=== PATIENT | female | born 1990 | race Caucasian/White ===

== ENCOUNTER → 2017-01-13 | Outpatient (CLI) | payer BC, OTHER ==
[~2017-01-13] MED LIST: MEDR150I IM; MULT-506 PO; TOPI50TA24 PO
== END | disposition home or self-care (01) ==
LOC: C.LABSPEC 10:22
DX: I80.8 Phlebitis and thrombophlebitis of other sites (principal)

== ENCOUNTER 2021-03-22 16:41 | Inpatient (IN) ==
[2021-03-22] MEDS ORDERED: OXYTOCIN 30 UNITS/500 ML BAG IV PRN ×2 (17:24→20:13)
[2021-03-22] MEDS ORDERED: PENICILLIN G POTASSIUM 6 MU in DEXTROSE 5% 250 ML IV STA (17:36)
[2021-03-22] MEDS: LACTATED RINGER'S 1,000 ML IV PRN ×2 (17:55→21:37)
[2021-03-22 17:58] LABS: Hematocrit (blood only) 36.4 % (37-47); Hemoglobin 12.4 g/dL (12.0-16.0); Mean Corpuscular Hemoglobin 28.4 pg (25-34); Mean Corpuscular Hgb Conc 34.1 g/dL (32-36); Mean Corpuscular Volume 83.5 fL (80-100); Mean Platelet Volume 10.8 fL (7.4-10.4); Platelet Count 170 K/uL (130-400); RDW Coefficient of Variation 13.4 % (11.5-14.5); RDW Standard Deviation 40.6 fL (36.4-46.3); Red Blood Count 4.36 M/uL (4.2-5.4); White Blood Count 8.73 K/uL (4.8-10.8)
[2021-03-22 18:18] LABS: Albumin Level 2.4 gm/dl (3.4-5.0); BUN Creatinine Ratio 7.8 (10-20); Calcium 7.9 mg/dl (8.5-10.1); Creatinine Clr Calc Pharmacy 76.2 ml/min; Est GFR (African American) 77.8 ml/min; Est GFR (Non-African American) 67.1 ml/min; Potassium 3.4 mmol/L (3.5-5.1)
[2021-03-22 18:21] LABS: Albumin Globulin Ratio 0.7 (0.9-2); Bilirubin,Total 0.3 mg/dl (0.2-1); Globulin 3.3 gm/dl (2.5-4.0); Total Protein 5.7 gm/dl (6.4-8.2)
--- NOTE | 2021-03-22 20:20 | History & Physical Report ---
Date of Service March 22, 2021 Assessment & Plan (1) Labor, prolonged latent phase: Plan: 30-year-old G1, P0 at 40 weeks and 3 days of gestation presenting with regular uterine contractions, prolonged latent phase, GBS positive, gestational diabetes, diet controlled, Vital signs stable afebrile, elevated blood pressures with contractions only, no proteinuria, normal labs and no symptoms, heart rate reassuring, Discussed option of expectant management versus augmentation with low-dose Pitocin, She desires to walk around for about 2 hours and then oxytocin augmentation, Penicillin for GBS, Continue to monitor, Epidural as requested by patient. (2) GBS (group B Streptococcus carrier), +RV culture, currently : (3) Gestational diabetes mellitus (GDM): (4) Post-dates : Admission and Anticipated Discharge Date Admission Date: March 22, 2021 History of Present Illness Primary Care Provider: Umang Coles Jr, DO Patient is a 30-year-old G1, P0 at 40 weeks and 3 days of gestation who has been feeling contractions since last night, they got more closer and regular and much more painful this afternoon. She feels them every 3 to 5 minutes and rates the pain 8-9 out of 10. She denies leakage of fluid or vaginal bleeding. She reports good movements. She denies fever, chills, nausea vomiting, headaches, change in her vision, epigastric or right upper quadrant pain, no Covid symptoms. Her has been uncomplicated except, 1/history of seizure disorder, last seizure was 12 years ago. She has been on Topamax which was approved by her neurologist and M. Her altered ultrasound was within normal limits, 2/gestational diabetes, diet-controlled, 3 GBS positive, 3/history of migraines Allergies Allergy/AdvReac Type Severity Reaction Status Date / Time No Known Allergies Allergy Mild Verified 03/30/14 05:56 Home Medications Medication Instructions Recorded Confirmed Type folic acid 1 mg tablet 1 mg PO DAILY 03/22/21 03/22/21 History prenat.vits,jorden,uav-oahh-zjuzg 1 tab PO DAILY 03/22/21 03/22/21 History topiramate 100 mg tablet (Topamax) 100 mg PO BID 03/22/21 03/22/21 History Patient History Medical History (Updated 03/22/21 @ 20:18 by Riley Silva MD) Gestational diabetes mellitus (GDM) Seizure Surgical History History of cholecystectomy [place] teeth extracted Social History Smoking Status: Never smoker Hx Alcohol Use: No Hx Substance Use: No Preferred Language: Grenadian Track Inspector Required: No Beliefs That Will Affect Care: None marital status: Current Living Situation: Spouse Feels Safe at Home: Yes Safety Concerns: Feels Safe At This Time Assistive Devices: None PHILOSOPHY SPECIALIST History Denies any history of STDs including chlamydia, gonorrhea, herpes Physical Exam Constitutional: well developed, well nourished and + acute distress (With contractions) Genitourinary: normal external appearance OB Exam Abdomen: + vertex Ma nual OB Exam: + cervical dilation 2 cm, + cervical effacement 80% and + station -2 OB Exam Monitor Tracing: + external uterine monitor used and + category I Results & Data ([facility]) Vital Signs (Past 12 Hours) Vital Signs Temp Pulse Resp BP 03/22/21 19:26 36.7 C 55 L 20 149/90 H 03/22/21 17:31 70 132/85 03/22/21 16:54 51 L 152/88 H 03/22/21 16:50 36.5 C 16 Laboratory Results Lab Results 03/22/21 03/22/21 03/22/21 Range/Units 17:51 17:51 19:20 WBC 8.73 (4.8-10.8) K/uL RBC 4.36 (4.2-5.4) M/uL Hgb 12.4 (12.0-16.0) g/dL Hct 36.4 L (37-47) % MCV 83.5 (80-100) fL MCH 28.4 (25-34) pg MCHC 34.1 (32-36) g/dL RDW Std Deviation 40.6 (36.4-46.3) fL RDW Coeff of Rock 13.4 (11.5-14.5) % Plt Count 170 (130-400) K/uL MPV 10.8 H (7.4-10.4) fL Sodium 138 (136-145) mmol/L Potassium 3.4 L (3.5-5.1) mmol/L Chloride 109 H (98-107) mmol/L Carbon Dioxide 20 L (21-32) mmol/L Anion Gap 9.0 (3-11) BUN 9 (7-18) mg/dl Creatinine 1.09 (0.6-1.2) mg/dl Est Cr Clr Drug Dosing 76.2 ml/min Est GFR ( Amer) 77.8 ml/min Est GFR (Non-Af Amer) 67.1 ml/min BUN/Creatinine Ratio 7.8 L (10-20) Glucose 93 (70-99) mg/dl Calcium 7.9 L (8.5-10.1) mg/dl Total Bilirubin 0.3 (0.2-1) mg/dl AST 16 (15-37) U/L ALT 13 (12-78) U/L Alkaline Phosphatase 145 H (45-117) U/L Total Protein 5.7 L (6.4-8.2) gm/dl Albumin 2.4 L (3.4-5.0) gm/dl Globulin 3.3 (2.5-4.0) gm/dl Albumin/Globulin Ratio 0.7 L (0.9-2) COVID-19 [facility] SARS-CoV-2, RNA, NAAT (NEGATIVE) 03/22/21 Range/Units 19:20 WBC (4.8-10.8) K/uL RBC (4.2-5.4) M/uL Hgb (12.0-16.0) g/dL Hct (37-47) % MCV (80-100) fL MCH (25-34) pg MCHC (32-36) g/dL RDW Std Deviation (36.4-46.3) fL RDW Coeff of Rock (11.5-14.5) % Plt Count (130-400) K/uL MPV (7.4-10.4) fL Sodium (136-145) mmol/L Potassium (3.5-5.1) mmol/L Chloride (98-107) mmol/L Carbon Dioxide (21-32) mmol/L Anion Gap (3-11) BUN (7-18) mg/dl Creatinine (0.6-1.2) mg/dl Est Cr Clr Drug Dosing ml/min Est GFR ( Amer) ml/min Est GFR (Non-Af Amer) ml/min BUN/Creatinine Ratio (10-20) Glucose (70-99) mg/dl Calcium (8.5-10.1) mg/dl Total Bilirubin (0.2-1) mg/dl AST (15-37) U/L ALT (12-78) U/L Alkaline Phosphatase (45-117) U/L Total Protein (6.4-8.2) gm/dl Albumin (3.4-5.0) gm/dl Globulin (2.5-4.0) gm/dl Albumin/Globulin Ratio (0.9-2) COVID-19 Eval Order SARS-CoV-2, RNA, NAAT NEGATIVE (NEGATIVE)
[2021-03-22] MEDS ORDERED: ePHEDrine sulfate 50 MG/ML AMP ONE (21:05)
[2021-03-22] MEDS ORDERED: BUPIVACAINE 0.25% 30 ML VIAL ONE (21:06)
[2021-03-22] MEDS ORDERED: SODIUM CHLORIDE 0.9% INJ 10 ML VIAL ONE (21:06)
[2021-03-22] MEDS ORDERED: fentaNYL citrate 100 MCG/2 ML VIAL ONE (21:06)
[2021-03-22] MEDS ORDERED: fentaNYL 2MCG/ML ROPIVACAINE 1.25MG/ML 100 ML BAG EPI ONE (21:07)
[2021-03-22] MEDS ORDERED: NALOXONE HCL 0.4 MG/1 ML VIAL/CARP IV PRN (21:09)
[2021-03-22] MEDS ORDERED: diphenhydrAMINE 50 MG/ML VIAL IV PRN (21:09)
[2021-03-22] MEDS ORDERED: ePHEDrine sulfate 50 MG/ML AMP IV PRN (21:09)
[2021-03-22] MEDS ORDERED: ONDANSETRON INJ 2 MG/ML 2 ML VIAL IV PRN (21:09)
[2021-03-22] MEDS ORDERED: NALBUPHINE HCL INJ 10 MG/ML AMP IV PRN (21:09)
[2021-03-22] MEDS ORDERED: NALOXONE HCL 1 MG in SODIUM CHLORIDE 0.9% 1000ML 1,000 ML IV PRN (21:09)
[2021-03-22] MEDS ORDERED: fentaNYL 2MCG/ML ROPIVACAINE 1.25MG/ML 100 ML BAG EPI PRN (21:09)
--- NOTE | 2021-03-22 21:10 | Anesthesiology Consultation ---
Date of Service March 22, 2021 Assessment & Plan ASA ASA3 Proposed Anesthesia Anesthesia Type: Labor Epidural Risk / Benefits Reviewed With: PT / POA / Parent / Guardian, Accepts Plan and Informed Consent Obtained History Height/Weight Height: 5 ft 4 in Weight: 80.739 kg Allergies Allergy/AdvReac Type Severity Reaction Status Date / Time No Known Allergies Allergy Mild Verified 03/30/14 05:56 Medications Home Medications Medication Instructions Recorded Confirmed Last Taken folic acid 1 mg tablet 1 mg PO DAILY 03/22/21 03/22/21 03/22/21 08:00 prenat.vits,jorden,duv-yeno-lajuk 1 tab PO DAILY 03/22/21 03/22/21 03/22/21 17:00 topiramate 100 mg tablet (Topamax) 100 mg PO BID 03/22/21 03/22/21 03/22/21 08:00 Active Medications Generic Name Dose Route Start Last Admin Trade Name Freq PRN Reason Stop Dose Admin Lactated Ringer's 1,000 mls @ 150 mls/hr 03/22/21 17:24 03/22/21 21:37 Lr IV 03/24/21 17:23 999 mls/hr .[id number] PRN Administration L&D Protocol Protocol Past Medical History Medical History (Updated 03/22/21 @ 20:18 by Riley Silva MD) Gestational diabetes mellitus (GDM) Seizure Exercise / Class Metabolic Activity II 4-5 Yardwork/Stairs/Walk up hill Past Surgical History Surgical History History of cholecystectomy [place] teeth extracted Past Anesthesia History No Hx of Anesthesia Complications and No Family Hx of Anesthesia Complications History of PONV No Hx of PONV and No Hx of Motion Sickness Social History Smoking Status: Never smoker Hx Alcohol Use: No Hx Substance Use: No Review of Systems denies fever/cough/ colds/ chest pain/ SOB/ STEPHANIE denies STEPHANIE Physical Exam Vital Signs Last Vital Signs Temp 36.7 C 03/22/21 19:26 Pulse 70 03/22/21 21:52 Resp 18 03/22/21 21:45 BP 134/83 03/22/21 21:52 Pulse Ox 98 03/22/21 21:52 ENMT Mouth: no TMJ abnormality and no dentition abnormality Thyromental Distance: > or= 3.5 Finger Breadths Mallampati Class: II Neck neck extension not limited Respiratory normal respiratory effort; no respiratory distress Auscultation: lungs clear to auscultation bilaterally Cardiovascular Rate/Rhythm: regular rate and regular rhythm Neurologic moves all extremities Psychiatric Orientation: alert and oriented x 3 Testing Laboratory Results 03/22/21 17:51 03/22/21 17:51
[2021-03-22] MEDS: TOPIRAMATE 100 MG TAB PO SCH (23:49)
[2021-03-22] MEDS: PENICILLIN G POTASSIUM 3 MU in DEXTROSE 5% 100 ML IV PRN (23:57)
--- NOTE | 2021-03-23 01:55 | Obstetrical Progress Note ---
Date of Service March 23, 2021 Assessment & Plan Admission and Anticipated Discharge Date Admission Date: March 22, 2021 Subjective Patient is reevaluated Received epidural and comfortable VE; 2-3 cm/ 90%/ -1, tight bag FHR categ I [place]: ctxs q 3-5 min Received 2 doses of PNC Plan to augment with low dose Oxytocin per protocol Results & Data ([facility]) Vital Signs (Past 12 Hours) Vital Signs Temp Pulse Resp BP Pulse Ox 03/23/21 01:47 78 100 03/23/21 01:42 81 100 03/23/21 01:39 47 L 18 137/88 03/23/21 01:37 48 L 100 03/23/21 01:32 47 L 98 03/23/21 01:27 49 L 97 03/23/21 01:25 36.9 C 47 L 18 140/88 03/23/21 01:22 48 L 98 03/23/21 01:17 45 L 96 03/23/21 01:12 78 97 03/23/21 01:10 52 L 122/81 03/23/21 01:07 80 97 03/23/21 01:02 51 L 99 03/23/21 00:57 56 L 96 03/23/21 00:54 50 L 117/76 03/23/21 00:52 53 L 99 03/23/21 00:47 60 97 03/23/21 00:42 56 L 98 03/23/21 00:39 51 L 124/79 03/23/21 00:37 59 L 97 03/23/21 00:32 49 L 98 03/23/21 00:27 46 L 98 03/23/21 00:26 54 L 139/84 03/23/21 00:22 48 L 98 03/23/21 00:17 50 L 96 03/23/21 00:12 62 99 03/23/21 00:10 49 L 136/87 03/23/21 00:07 54 L 100 03/23/21 00:02 49 L 100 03/22/21 23:57 54 L 98 03/22/21 23:56 55 L 150/88 H 87 L 03/22/21 23:52 50 L 100 03/22/21 23:47 54 L 100 03/22/21 23:42 57 L 97 03/22/21 23:40 55 L 129/85 03/22/21 23:37 60 99 03/22/21 23:32 48 L 98 03/22/21 23:27 45 L 98 03/22/21 23:24 56 L 131/88 90 03/22/21 23:22 51 L 99 03/22/21 23:17 44 L 98 03/22/21 23:15 36.9 C 46 L 18 133/80 03/22/21 23:14 48 L 91 03/22/21 23:12 53 L 95 03/22/21 23:07 58 L 99 03/22/21 23:02 60 98 03/22/21 23:00 20 03/22/21 22:57 51 L 98 03/22/21 22:55 53 L 135/87 03/22/21 22:52 53 L 96 03/22/21 22:47 44 L 98 03/22/21 22:42 49 L 97 03/22/21 22:41 50 L 135/84 03/22/21 22:37 51 L 97 03/22/21 22:32 54 L 97 03/22/21 22:30 18 03/22/21 22:27 61 97 03/22/21 22:26 36.7 C 20 03/22/21 22:24 55 L 134/86 03/22/21 22:22 60 98 03/22/21 22:20 58 L 133/85 03/22/21 22:17 56 L 99 03/22/21 22:15 70 138/86 03/22/21 22:12 58 L 99 03/22/21 22:09 66 138/90 03/22/21 22:07 65 99 03/22/21 22:04 71 135/87 03/22/21 22:02 68 97 03/22/21 22:00 20 03/22/21 21:58 69 133/88 03/22/21 21:57 71 99 03/22/21 21:56 73 132/84 03/22/21 21:54 72 140/87 03/22/21 21:52 70 134/83 98 03/22/21 21:50 76 142/91 H 03/22/21 21:48 78 148/87 H 03/22/21 21:47 88 151/97 H 99 03/22/21 21:45 18 03/22/21 21:42 64 99 03/22/21 21:25 20 03/22/21 21:22 74 100 03/22/21 21:17 60 100 03/22/21 21:12 71 100 03/22/21 21:07 61 100 03/22/21 21:02 57 L 99 03/22/21 20:57 63 100 03/22/21 19:26 36.7 C 55 L 20 149/90 H 03/22/21 17:31 70 132/85 03/22/21 16:54 51 L 152/88 H 03/22/21 16:50 36.5 C 16
[2021-03-23] MEDS: LACTATED RINGER'S 1,000 ML IV PRN (02:13)
[2021-03-23] MEDS ORDERED: NURSING L&D Epidural Breakthrough Pain Update ONE (02:15)
[2021-03-23] MEDS ORDERED: BUPIVACAINE 0.25% 30 ML VIAL ONE ×2 (03:07→03:14)
[2021-03-23] MEDS ORDERED: SODIUM CHLORIDE 0.9% INJ 10 ML VIAL ONE (03:14)
[2021-03-23] MEDS ORDERED: ePHEDrine sulfate 50 MG/ML AMP ONE (03:14)
[2021-03-23] MEDS ORDERED: fentaNYL citrate 100 MCG/2 ML VIAL ONE (03:14)
[2021-03-23] MEDS ORDERED: fentaNYL 2MCG/ML ROPIVACAINE 1.25MG/ML 100 ML BAG EPI ONE (03:15)
--- NOTE | 2021-03-23 03:45 | Communication Note ---
Date of Service: March 23, 2021 ask to evaluate epidural. pt c/o right sided stabbing pain with contractions. pt left leg is numb and difficult to move. i pulled catheter back 1 cm and bolused 5 cc of 0.25% bupivicaine. pt with no relief. decision to replace catheter. catheter removed with tip intact. pt sitting. l2-l3 space identified by landmarks. sterile prep/drape/gloves. 1% lido infiltrated. 17 gauge touey needle advanced to suellen of air at 5 cm. Easy catheter thread. negative aspiration. 3 cc of lido with epi given as test dose. negative IV/IT. catheter at 11 cm. catheter secured. bolus of 100 mcg fentanyl and 4 cc 0.25% bupivicaine in divided doses given. vss see nursing notes.
[2021-03-23] MEDS: PENICILLIN G POTASSIUM 3 MU in DEXTROSE 5% 100 ML IV PRN ×2 (03:47→07:45)
[2021-03-23] MEDS ORDERED: D5W AND LACTATED RINGERS 1,000 ML IV SCH (07:15)
[2021-03-23] MEDS ORDERED: MINERAL OIL 30 ML UDC ONE (08:06)
[2021-03-23] MEDS ORDERED: LIDOCAINE 1% LOCAL 20 ML VIAL ONE (08:35)
[2021-03-23] MEDS ORDERED: BUTORPHANOL TARTRATE 1 MG/ML VIAL ONE (09:00)
[2021-03-23] MEDS ORDERED: HYDROCORTISONE ACETATE 25 MG SUPP PR PRN (09:06)
[2021-03-23] MEDS ORDERED: ACETAMINOPHEN 325 MG TAB PO PRN (09:06)
[2021-03-23] MEDS ORDERED: DIPHTHERIA/TETANUS/PERTUSSIS 0.5 ML SYR/VIAL IM ONE (09:06)
[2021-03-23] MEDS ORDERED: BENZOCAINE 20% AER SPR 82.5 GM CAN EXT PRN (09:06)
[2021-03-23] MEDS ORDERED: bisacodyL 10 MG SUPP PR PRN (09:06)
[2021-03-23] MEDS ORDERED: SUPERCREAM 0.870% 15 GM JAR EXT PRN (09:06)
[2021-03-23] MEDS ORDERED: NON-FORMULARY MEDICATION (Prenat.Vits,Cal,Min-Iron-Folic Tablet) PO SCH (09:06)
[2021-03-23] MEDS ORDERED: OXYTOCIN 30 UNITS/500 ML BAG IV PRN (09:06)
[2021-03-23] MEDS ORDERED: miSOPROStoL 200 MCG TAB PR ONE (09:07)
[2021-03-23] MEDS ORDERED: BUTORPHANOL TARTRATE 1 MG/ML VIAL IV STA (09:07)
[2021-03-23] MEDS ORDERED: LIDOCAINE 2% LOCAL 50 ML VIAL INFIL ONE (09:15)
--- NOTE | 2021-03-23 09:28 | Delivery Summary ---
Vaginal Delivery Summary Date of Service March 23, 2021 Vaginal Delivery Summary Patient was found to be fully dilated and desire to push she pushed with good efforts for about an hour and was getting exhausted. Hymenal ring and perineal skin were tight holding the head from delivery. Patient requested assistance with episiotomy. A small right mediolateral episiotomy was opened, head was delivered right after, shoulders were delivered with minimal traction, baby was handed off to the mother, where her mouth and nose were suctioned and cord was clamped and cut. The baby was handed off to the waiting pediatric team. There was a terminal meconium stained fluid. The vagina and perineum were checked for lacerations. There was a right mediolateral episiotomy as a second-degree and there was another vaginal tear on the left lower vagina. Those were repaired with 2-0 Vicryl in a running locked fashion meeting at the perineal fourchette. And then perineal body muscles, bulbocavernosus muscles were reapproximated with 2/ 0 Vicryl and skin in a subcuticular fashion. Rectal exam was done and found excellent sphincter tone and no sutures were felt. The placenta was found to be in the vagina delivered spontaneously as intact and complete. It noted to be membranes missing at the edge of the placenta. Uterus was explored found to have membranes and they were brought out with the ring forceps gently. Uterus was explored and found to be empty, lower segment was cleared of all clots and debris, EBL was 400 mL. Mom and baby tolerated procedure well, there was a viable female , Apgars 8/8, weight is pending. No complications happened I was present during whole procedure. At the end of the procedure, the sponge, instrument, needle count was correctx2.
[2021-03-23] MEDS: TOPIRAMATE 100 MG TAB PO SCH ×3 (10:00→21:08)
[2021-03-23] MEDS: FOLIC ACID 1 MG TAB PO SCH (10:01)
--- NOTE | 2021-03-23 11:19 | Anesthesia Procedure Note ---
Date of Service March 23, 2021 Anesthesia Post Epidural Note Vital Signs Vital Signs: Temp Pulse Resp BP Pulse Ox 36.8 C 109 H 18 113/75 91 03/23/21 07:04 03/23/21 09:57 03/23/21 09:59 03/23/21 09:57 03/23/21 08:17 Pain Intensity Bilateral Abdomen: Pain Intensity: 5 Notes Mental Status: alert / awake / arousable Nausea / Vomiting: adequately controlled Pain: adequately controlled Airway Patency, RR, SpO2: stable & adequate BP & HR: stable & adequate Hydration State: stable & adequate Neuraxial Anesthesia: was administered and sensory block is resolving Anesthetic Complications: no major complications apparent Epidural: Removed without complications and With tip intact
[2021-03-23] MEDS: IBUPROFEN 600 MG TAB PO PRN ×3 (13:05→23:52)
[2021-03-23] MEDS: DOCUSATE SODIUM 100 MG CAP PO SCH (21:08)
[2021-03-24] MEDS: IBUPROFEN 600 MG TAB PO PRN ×2 (03:27→13:55)
[2021-03-24 06:20] LABS: Hematocrit (blood only) 26.9 % (37-47); Hemoglobin 8.9 g/dL (12.0-16.0); Mean Corpuscular Hemoglobin 28.2 pg (25-34); Mean Corpuscular Hgb Conc 33.1 g/dL (32-36); Mean Corpuscular Volume 85.1 fL (80-100); Mean Platelet Volume 10.1 fL (7.4-10.4); Platelet Count 143 K/uL (130-400); RDW Coefficient of Variation 13.8 % (11.5-14.5); RDW Standard Deviation 42.8 fL (36.4-46.3); Red Blood Count 3.16 M/uL (4.2-5.4); White Blood Count 11.53 K/uL (4.8-10.8)
[2021-03-24] MEDS ORDERED: FERROUS SULFATE 325 MG TAB PO SCH (08:00)
--- NOTE | 2021-03-24 08:20 | Obstetrical Progress Note ---
Date of Service March 24, 2021 Assessment & Plan Admission and Anticipated Discharge Date Admission Date: March 22, 2021 Subjective Patient is seen and examined. She feels well, no complaints. Ambulating without dizziness Voiding without difficulty Tolerating regular diet with out N&V Bleeding is minimal No fever/ chills/ CP/ SOB/ N&V/ Leg pain Breast feeding without problems Vital Signs Temp Pulse Resp BP Pulse Ox 03/24/21 03:25 37.1 C 72 17 138/95 100 03/23/21 23:50 36.7 C 77 16 139/99 98 Lab Results 03/22/21 03/22/21 03/22/21 Range/Units 17:51 17:51 19:20 WBC 8.73 (4.8-10.8) K/uL RBC 4.36 (4.2-5.4) M/uL Hgb 12.4 (12.0-16.0) g/dL Hct 36.4 L (37-47) % MCV 83.5 (80-100) fL MCH 28.4 (25-34) pg MCHC 34.1 (32-36) g/dL RDW Std Deviation 40.6 (36.4-46.3) fL RDW Coeff of Rock 13.4 (11.5-14.5) % Plt Count 170 (130-400) K/uL MPV 10.8 H (7.4-10.4) fL Sodium 138 (136-145) mmol/L Potassium 3.4 L (3.5-5.1) mmol/L Chloride 109 H (98-107) mmol/L Carbon Dioxide 20 L (21-32) mmol/L Anion Gap 9.0 (3-11) BUN 9 (7-18) mg/dl Creatinine 1.09 (0.6-1.2) mg/dl Est Cr Clr Drug Dosing 76.2 ml/min Est GFR ( Amer) 77.8 ml/min Est GFR (Non-Af Amer) 67.1 ml/min BUN/Creatinine Ratio 7.8 L (10-20) Glucose 93 (70-99) mg/dl POC Glucose (70-99) mg/dl Calcium 7.9 L (8.5-10.1) mg/dl Total Bilirubin 0.3 (0.2-1) mg/dl AST 16 (15-37) U/L ALT 13 (12-78) U/L Alkaline Phosphatase 145 H (45-117) U/L Total Protein 5.7 L (6.4-8.2) gm/dl Albumin 2.4 L (3.4-5.0) gm/dl Globulin 3.3 (2.5-4.0) gm/dl Albumin/Globulin Ratio 0.7 L (0.9-2) COVID-19 [facility] SARS-CoV-2, RNA, NAAT (NEGATIVE) 03/22/21 03/22/21 03/23/21 Range/Units 19:20 22:24 02:44 WBC (4.8-10.8) K/uL RBC (4.2-5.4) M/uL Hgb (12.0-16.0) g/dL Hct (37-47) % MCV (80-100) fL MCH (25-34) pg MCHC (32-36) g/dL RDW Std Deviation (36.4-46.3) fL RDW Coeff of Rock (11.5-14.5) % Plt Count (130-400) K/uL MPV (7.4-10.4) fL Sodium (136-145) mmol/L Potassium (3.5-5.1) mmol/L Chloride (98-107) mmol/L Carbon Dioxide (21-32) mmol/L Anion Gap (3-11) BUN (7-18) mg/dl Creatinine (0.6-1.2) mg/dl Est Cr Clr Drug Dosing ml/min Est GFR ( Amer) ml/min Est GFR (Non-Af Amer) ml/min BUN/Creatinine Ratio (10-20) Glucose (70-99) mg/dl POC Glucose 83 82 (70-99) mg/dl Calcium (8.5-10.1) mg/dl Total Bilirubin (0.2-1) mg/dl AST (15-37) U/L ALT (12-78) U/L Alkaline Phosphatase (45-117) U/L Total Protein (6.4-8.2) gm/dl Albumin (3.4-5.0) gm/dl Globulin (2.5-4.0) gm/dl Albumin/Globulin Ratio (0.9-2) COVID-19 Eval Order SARS-CoV-2, RNA, NAAT NEGATIVE (NEGATIVE) 03/23/21 03/23/21 03/24/21 Range/Units 06:39 06:58 05:59 WBC 11.53 H (4.8-10.8) K/uL RBC 3.16 L (4.2-5.4) M/uL Hgb 8.9 L D (12.0-16.0) g/dL Hct 26.9 L (37-47) % MCV 85.1 (80-100) fL MCH 28.2 (25-34) pg MCHC 33.1 (32-36) g/dL RDW Std Deviation 42.8 (36.4-46.3) fL RDW Coeff of Rock 13.8 (11.5-14.5) % Plt Count 143 (130-400) K/uL MPV 10.1 (7.4-10.4) fL Sodium (136-145) mmol/L Potassium (3.5-5.1) mmol/L Chloride (98-107) mmol/L Carbon Dioxide (21-32) mmol/L Anion Gap (3-11) BUN (7-18) mg/dl Creatinine (0.6-1.2) mg/dl Est Cr Clr Drug Dosing ml/min Est GFR ( Amer) ml/min Est GFR (Non-Af Amer) ml/min BUN/Creatinine Ratio (10-20) Glucose (70-99) mg/dl POC Glucose 67 L* 66 L* (70-99) mg/dl Calcium (8.5-10.1) mg/dl Total Bilirubin (0.2-1) mg/dl AST (15-37) U/L ALT (12-78) U/L Alkaline Phosphatase (45-117) U/L Total Protein (6.4-8.2) gm/dl Albumin (3.4-5.0) gm/dl Globulin (2.5-4.0) gm/dl Albumin/Globulin Ratio (0.9-2) COVID-19 Eval Order SARS-CoV-2, RNA, NAAT (NEGATIVE) PE: General: Alert, orientedx3, NAD Abd: soft, NT, fundus firm, below Umbilicus Perineum intact, Lochia rubra minimal Ext; NT, no edema AP: 30 yo s/p , ppd# 1 VSS Afebrile doing well Iron bid Continue routine care All questions were answered D/C home tomorrow Results & Data ([facility]) Vital Signs (Past 12 Hours) Vital Signs Temp Pulse Resp BP Pulse Ox 03/24/21 03:25 37.1 C 72 17 138/95 100 03/23/21 23:50 36.7 C 77 16 139/99 98
[2021-03-24] MEDS: DOCUSATE SODIUM 100 MG CAP PO SCH ×2 (08:37→20:51)
[2021-03-24] MEDS: FERROUS SULFATE 325 MG TAB PO SCH ×3 (08:37→20:52)
[2021-03-24] MEDS: PRENATAL VITAMIN 1 TAB PO SCH (08:37)
[2021-03-24] MEDS: FOLIC ACID 1 MG TAB PO SCH (08:39)
[2021-03-24] MEDS: TOPIRAMATE 100 MG TAB PO SCH ×2 (08:39→20:51)
[2021-03-24] MEDS ORDERED: bisacodyL 5 MG TABEC PO SCH (20:00)
[2021-03-25] MEDS: TOPIRAMATE 100 MG TAB PO SCH (08:58)
[2021-03-25] MEDS: DOCUSATE SODIUM 100 MG CAP PO SCH (08:59)
[2021-03-25] MEDS: FERROUS SULFATE 325 MG TAB PO SCH (08:59)
[2021-03-25] MEDS: PRENATAL VITAMIN 1 TAB PO SCH (08:59)
[2021-03-25] MEDS: FOLIC ACID 1 MG TAB PO SCH (09:00)
[2021-03-25] MEDS: IBUPROFEN 600 MG TAB PO PRN (09:01)
--- NOTE | 2021-03-25 10:23 | Obstetrical Progress Note ---
Date of Service March 25, 2021 Subjective Ambulation: ambulating normally Voiding: no voiding problems Passing Gas:: Yes Diet Tolerance:: regular diet Feeding Type:: breast feeding Current Pain Level(1-10): 0 doing well plans for d/c Physical Exam Constitutional WD/WN, vitals as above comfortable abdomen soft and non-tender no edema neg Lala's for d/c today Results & Data ([facility]) Vital Signs (Past 12 Hours) Vital Signs Temp Pulse Resp BP BP 03/24/21 23:15 36.6 C 88 18 131/80 131/80 Laboratory Results 03/22/21 03/22/21 03/22/21 17:51 17:51 19:20 WBC 8.73 RBC 4.36 Hgb 12.4 Hct 36.4 L MCV 83.5 MCH 28.4 MCHC 34.1 RDW Std Deviation 40.6 RDW Coeff of Rock 13.4 Plt Count 170 MPV 10.8 H Sodium 138 Potassium 3.4 L Chloride 109 H Carbon Dioxide 20 L Anion Gap 9.0 BUN 9 Creatinine 1.09 Est Cr Clr Drug Dosing 76.2 Est GFR ( Amer) 77.8 Est GFR (Non-Af Amer) 67.1 BUN/Creatinine Ratio 7.8 L Glucose 93 POC Glucose Calcium 7.9 L Total Bilirubin 0.3 AST 16 ALT 13 Alkaline Phosphatase 145 H Total Protein 5.7 L Albumin 2.4 L Globulin 3.3 Albumin/Globulin Ratio 0.7 L COVID-19 Eval Order Covid19 [facility]Now [facility] SARS-CoV-2, RNA, NAAT 03/22/21 03/22/21 03/23/21 19:20 22:24 02:44 WBC RBC Hgb Hct MCV MCH MCHC RDW Std Deviation RDW Coeff of Rock Plt Count MPV Sodium Potassium Chloride Carbon Dioxide Anion Gap BUN Creatinine Est Cr Clr Drug Dosing Est GFR ( Amer) Est GFR (Non-Af Amer) BUN/Creatinine Ratio Glucose POC Glucose 83 82 Calcium Total Bilirubin AST ALT Alkaline Phosphatase Total Protein Albumin Globulin Albumin/Globulin Ratio COVID-19 Eval Order SARS-CoV-2, RNA, NAAT NEGATIVE 03/23/21 03/23/21 03/24/21 06:39 06:58 05:59 WBC 11.53 H RBC 3.16 L Hgb 8.9 L D Hct 26.9 L MCV 85.1 MCH 28.2 MCHC 33.1 RDW Std Deviation 42.8 RDW Coeff of Rock 13.8 Plt Count 143 MPV 10.1 Sodium Potassium Chloride Carbon Dioxide Anion Gap BUN Creatinine Est Cr Clr Drug Dosing Est GFR ( Amer) Est GFR (Non-Af Amer) BUN/Creatinine Ratio Glucose POC Glucose 67 L* 66 L* Calcium Total Bilirubin AST ALT Alkaline Phosphatase Total Protein Albumin Globulin Albumin/Globulin Ratio COVID-19 Eval Order SARS-CoV-2, RNA, NAAT 03/25/21 06:01 WBC RBC Hgb 10.0 L Hct 31.0 L MCV MCH MCHC RDW Std Deviation RDW Coeff of Rock Plt Count MPV Sodium Potassium Chloride Carbon Dioxide Anion Gap BUN Creatinine Est Cr Clr Drug Dosing Est GFR ( Amer) Est GFR (Non-Af Amer) BUN/Creatinine Ratio Glucose POC Glucose Calcium Total Bilirubin AST ALT Alkaline Phosphatase Total Protein Albumin Globulin Albumin/Globulin Ratio COVID-19 Eval Order SARS-CoV-2, RNA, NAAT
== END 2021-03-25 13:10 | disposition home or self-care (01) | DRG 807 ==
LOC: OPB 16:41 → 4S1 16:47 → 4S2 03-23 14:57

== ENCOUNTER 2023-02-16 13:38 | Inpatient (IN) ==
[2023-02-16] MEDS ORDERED: LIDOCAINE 1% LOCAL 20 ML VIAL INFIL PRN (14:31)
[2023-02-16] MEDS ORDERED: OXYTOCIN 30 UNITS/500 ML BAG IV PRN ×3 (14:31→19:56)
[2023-02-16] MEDS: LACTATED RINGER'S 1,000 ML IV PRN ×2 (15:14→18:35)
[2023-02-16 15:15] LABS: Hemoglobin 11.9 g/dl (12.0-16.0); Mean Corpuscular Hemoglobin 27.6 pg (25.0-34.0); Mean Corpuscular Volume 81.2 fL (80.0-100.0); Mean Platelet Volume 11.1 fL (9.4-12.4); Platelet Count 179 K/uL (130-400); RDW Standard Deviation 38.4 fL (36.4-46.3); Red Blood Count 4.31 M/uL (4.20-5.40); White Blood Count 7.35 K/ul (4.8-10.8)
--- NOTE | 2023-02-16 16:07 | History & Physical Report ---
Date of Service February 16, 2023 Assessment & Plan (1) Post-dates : Plan: 32-year-old -0-0-1 at 41 weeks of gestation, vital signs stable afebrile, heart rate reassuring, Cervix favorable, Plan to admit, monitor, labs, augment with low-dose oxytocin per protocol, AROM when able anticipate . (2) Gestational diabetes mellitus (GDM): Plan: During P1, now with abnormal glucola at 167 mg/ dl, has not completed 3 hour OGTT History of Present Illness Primary Care Provider: Umang Coles Jr, DO Patient is a 32-year-old -0-0-1 at 41 weeks of gestation who was sent from office where she had NST and her baseline was lower than normal before at 110. Her JUANY was 17 cm. She was originally scheduled for induction of labor for February 18. When she came here NST was reactive she had a normal baseline between 120-130 with good accelerations, moderate variability, no decelerations. Being postdates I offered her induction tonight and she accepted. She has no complaints. She denies contractions, leakage of fluid, vaginal bleeding. She reports good movements. Her has been uncomplicated except 1) history of seizure disorder. She is on Topamax and seizure-free for 10 years. She has seen MFM during this and ultrasound, echo are within normal limits. 2) h/o GDMA1 during 1st and abnormal 50 gr screening during this , has not completed 3 hour OGTT, checked her FS for 1-2 weeks and they were WNL. I delivered her first baby 23 months ago. Allergies Allergy/AdvReac Type Severity Reaction Status Date / Time No Known Allergies Allergy Mild Verified 03/30/14 05:56 Home Medications Medication Instructions Recorded Confirmed Type folic acid 1 mg tablet 1 mg PO DAILY 03/22/21 03/22/21 History prenat.vits,jorden,pfr-eafi-ixees 1 tab PO DAILY 03/22/21 03/22/21 History topiramate 100 mg tablet (Topamax) 100 mg PO BID 03/22/21 03/22/21 History ibuprofen 600 mg tablet 600 mg PO Q4H PRN fever or pain 03/25/21 Rx #30 tabs Patient History Medical History Gestational diabetes mellitus (GDM) Seizure Surgical History History of cholecystectomy [place] teeth extracted Social History Smoking Status: Never smoker Hx Alcohol Use: No Hx Substance Use: No Preferred Language: Croatian Air Quality Specialist Required: No Beliefs That Will Affect Care: None marital status: Current Living Situation: Spouse and Family Feels Safe at Home: Yes Safety Concerns: Feels Safe At This Time Assistive Devices: None OB History Full-term on March 2021 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 Review of Systems as per Subjective / HPI Physical Exam Constitutional: WD/WN, vitals as above well developed, well nourished and comfortable Gastrointestinal (Abdomen): normal bowel sounds, soft, nontender, no hepatosplenomegaly (Gravid, Eddie 7 - 8 pounds) Genitourinary: normal external appearance Manual OB Exam: + cervical dilation 3 cm, + cervical effacement 50% and + station -2 OB Exam Monitor Tracing: + external uterine monitor used and + category I Results & Data Vital Signs (Past 12 Hours) Vital Signs Temp Pulse Resp BP 02/16/23 14:02 36.6 C 20 02/16/23 13:53 95 H 124/86
[2023-02-16] MEDS ORDERED: fentaNYL citrate PF 100 MCG/2 ML VIAL ONE (17:31)
[2023-02-16] MEDS ORDERED: ePHEDrine sulfate 50 MG/ML AMP ONE (17:31)
[2023-02-16] MEDS ORDERED: SODIUM CHLORIDE 0.9% PF INJ 10 ML VIAL ONE (17:31)
[2023-02-16] MEDS ORDERED: BUPIVACAINE 0.25% PF 30 ML VIAL ONE (17:32)
[2023-02-16] MEDS ORDERED: fentaNYL 2MCG/ML ROPIVACAINE 1.25MG/ML 100 ML BAG EPI ONE (17:32)
[2023-02-16] MEDS ORDERED: LIDOCAINE 2%/EPINEPHRINE 1:200,000 20 ML PF ONE (17:32)
--- NOTE | 2023-02-16 17:43 | Obstetrical Progress Note ---
Date of Service February 16, 2023 Subjective Patient started to have ctxs q 2-3 min, rating her pain 5/10 FHR categ I VE: 4-5 cm/ 60%/ -2, bulging bag, AROM'ed, abundant clear fluid Oxytocin is at 8 miu/min Patient plans to have epidural when she would need it. Results & Data Vital Signs (Past 12 Hours) Vital Signs Temp Pulse Resp BP 02/16/23 14:02 36.6 C 20 02/16/23 13:53 95 H 124/86
--- NOTE | 2023-02-16 18:40 | Obstetrical Progress Note ---
Date of Service February 16, 2023 Subjective Patient is painful and asking for epidural VE; 6/ 70%/-1 FHR categ I [place] ctxs q 1-3 min Continue to monitor Epidural for pain Results & Data Vital Signs (Past 12 Hours) Vital Signs Temp Pulse Resp BP Pulse Ox 02/16/23 14:02 36.6 C 20 02/16/23 18:33 100 02/16/23 18:34 87 L 02/16/23 18:33 77 02/16/23 18:34 76 02/16/23 18:28 99 02/16/23 18:28 70 02/16/23 18:27 91 02/16/23 18:27 79 02/16/23 18:23 99 02/16/23 18:23 75 02/16/23 13:53 95 H 124/86
[2023-02-16] MEDS ORDERED: NALOXONE HCL 0.4 MG/1 ML VIAL/CARP IV PRN (18:41)
[2023-02-16] MEDS ORDERED: SODIUM CHLORIDE 0.9% PF INJ 10 ML VIAL EPI STA (18:41)
[2023-02-16] MEDS ORDERED: fentaNYL citrate PF 100 MCG/2 ML VIAL EPI PRN (18:41)
[2023-02-16] MEDS ORDERED: BUPIVACAINE 0.25% PF 30 ML VIAL EPI STA (18:41)
[2023-02-16] MEDS ORDERED: ePHEDrine sulfate 50 MG/ML AMP IV PRN (18:41)
[2023-02-16] MEDS ORDERED: LIDOCAINE 2% MPF LOCAL 5 ML VIAL EPI PRN (18:41)
[2023-02-16] MEDS ORDERED: NALBUPHINE HCL INJ 10 MG/ML AMP IV PRN (18:41)
[2023-02-16] MEDS ORDERED: BUPIVACAINE 0.25% PF 30 ML VIAL EPI PRN (18:41)
[2023-02-16] MEDS ORDERED: ROPIVACAINE 0.5% PF 5 MG/ML 20 ML VIAL EPI PRN (18:41)
[2023-02-16] MEDS ORDERED: LIDOCAINE 2%/EPINEPHRINE 1:200,000 20 ML PF EPI STA (18:41)
[2023-02-16] MEDS ORDERED: diphenhydrAMINE 50 MG/ML VIAL IV PRN (18:41)
[2023-02-16] MEDS ORDERED: SODIUM CHLORIDE 0.9% PF INJ 10 ML VIAL EPI PRN (18:41)
[2023-02-16] MEDS ORDERED: fentaNYL 2MCG/ML ROPIVACAINE 1.25MG/ML 100 ML BAG EPI PRN (18:41)
[2023-02-16] MEDS ORDERED: NALOXONE HCL 1 MG in SODIUM CHLORIDE 0.9% 1,000 ML IV PRN (18:41)
[2023-02-16] MEDS ORDERED: fentaNYL citrate PF 100 MCG/2 ML VIAL EPI STA (18:41)
--- NOTE | 2023-02-16 18:41 | Anesthesiology Consultation ---
Date of Service February 16, 2023 Assessment & Plan (1) Encounter for pre-operative examination: Chart Review Chart Review: Patient NOT seen in Pre Admission Testing and Acceptable Risk for Labor Epidural Consults Requested none History Height/Weight Height: 5 ft 4 in Weight: 75.843 kg Allergies Allergy/AdvReac Type Severity Reaction Status Date / Time No Known Allergies Allergy Mild Verified 03/30/14 05:56 Medications Home Medications Medication Instructions Recorded Confirmed Last Taken folic acid 1 mg tablet 1 mg PO DAILY 03/22/21 03/22/21 03/22/21 08:00 prenat.vits,jorden,jaj-xxpz-arkty 1 tab PO DAILY 03/22/21 03/22/21 03/22/21 17:00 topiramate 100 mg tablet (Topamax) 100 mg PO BID 03/22/21 03/22/21 03/22/21 08:00 ibuprofen 600 mg tablet 600 mg PO Q4H PRN fever or pain 03/25/21 Unknown #30 tabs Active Medications Generic Name Dose Route Start Last Admin Trade Name Lenard PRN Reason Stop Dose Admin Lactated Ringer's 1,000 mls @ 150 mls/hr 02/16/23 14:31 02/16/23 18:38 Lr IV 02/18/23 14:30 125 mls/hr .Q6H40M PRN Infusion L&D Protocol Protocol Oxytocin 30 units in 500 mls @ 8 mls/hr 02/16/23 14:33 02/16/23 17:31 Pitocin IV 02/18/23 14:32 0.48 units/hr .Q24H PRN 8 mls/hr Labor Induction/Augmentation Titration Protocol 0.48 UNITS/HR Past Medical History Medical History Gestational diabetes mellitus (GDM) Seizure Past Surgical History Surgical History History of cholecystectomy [place] teeth extracted Social History Smoking Status: Never smoker Hx Alcohol Use: No Hx Substance Use: No Physical Exam Vital Signs Last Vital Signs Temp 97.9 F 02/16/23 14:02 Pulse 68 02/16/23 18:38 Resp 20 02/16/23 14:02 BP 124/86 02/16/23 13:53 Pulse Ox 99 02/16/23 18:38 Testing Laboratory Results 02/16/23 14:41
[2023-02-16] MEDS ORDERED: ACETAMINOPHEN 325 MG TAB PO PRN (19:56)
[2023-02-16] MEDS ORDERED: DIPHTHERIA/TETANUS/PERTUSSIS Vaccine (Tdap, Age 7+yrs) 0.5mL SYR/VL IM ONE (19:56)
[2023-02-16] MEDS ORDERED: bisacodyL 10 MG SUPP PR PRN (19:56)
[2023-02-16] MEDS ORDERED: HYDROCORTISONE ACETATE 25 MG SUPP PR PRN (19:56)
[2023-02-16] MEDS ORDERED: oxyCODONE/ACETAMINOPHEN 5mg/325mg TAB PO PRN (19:56)
[2023-02-16] MEDS ORDERED: MEASLES, MUMPS & RUBELLA VIRUS VIAL SQ ONE (19:56)
--- NOTE | 2023-02-16 20:06 | Anesthesia Procedure Note ---
Date of Service February 16, 2023 Anesthesia Post Epidural Note Vital Signs Vital Signs: Temp Pulse Resp BP Pulse Ox 97.9 F 86 20 113/75 95 02/16/23 14:02 02/16/23 20:03 02/16/23 14:02 02/16/23 19:53 02/16/23 20:03 Notes Mental Status: alert / awake / arousable and participated in evaluation Nausea / Vomiting: adequately controlled Pain: adequately controlled Airway Patency, RR, SpO2: stable & adequate BP & HR: stable & adequate Hydration State: stable & adequate Neuraxial Anesthesia: was administered and sensory block is resolving Anesthetic Complications: no major complications apparent and Pt Satisfied with anesthetic care Epidural: Removed without complications and With tip intact
--- NOTE | 2023-02-16 20:06 | Delivery Summary ---
Vaginal Delivery Summary Date of Service February 16, 2023 Vaginal Delivery Summary Patient was found to be fully dilated and desires to push. She pushed for about 10 min and delivered the head and then shoulders with minimal traction. There was nuchal cordx2 around the neck and those were reduced. The baby was handed off to the mother. The cord was clampedx2 and cut at 1 minute. The baby was vigorously moving and crying. The vagina and perineum were checked and found to have a small 2nd degree perineal laceration. The vaginal mucosa was repaired with 2/0 vicryl and skin on subcuticular fashion. The placenta was delivered spontaneously as intact and complete. The uterus was explored and found to be empty. EBL was 300 ml. The fundus was firm The baby was a viable male , Apgars 8/9, the weight is pending The mother and the baby tolerated the procedure well. No complications happened and I was present during whole procedure. The sponge, needle and instrument count was correctx2.
[2023-02-16] MEDS ORDERED: TOPIRAMATE 100 MG TAB PO SCH (21:00)
[2023-02-16] MEDS ORDERED: Nursing to Pharmacy Communication SCH (21:45)
[2023-02-16] MEDS: BENZOCAINE 20% SPRY 85 APPLN/85 GM CAN EXT PRN (21:56)
[2023-02-16] MEDS: IBUPROFEN 600 MG TAB PO PRN (23:01)
[2023-02-16] MEDS: DOCUSATE SODIUM 100 MG CAP PO SCH (23:02)
[2023-02-16] MEDS: TOPIRAMATE 50 MG TAB PO SCH (23:02)
[2023-02-17 06:14] LABS: Hematocrit (blood only) 32.7 % (37.0-47.0); Hemoglobin 10.7 g/dl (12.0-16.0); Mean Corpuscular Hemoglobin 27.2 pg (25.0-34.0); Mean Corpuscular Hgb Conc 32.7 g/dL (32.0-36.0); Mean Corpuscular Volume 83.2 fL (80.0-100.0); Mean Platelet Volume 11.3 fL (9.4-12.4); Platelet Count 145 K/uL (130-400); RDW Coefficient of Variation 12.8 % (11.5-14.5); RDW Standard Deviation 38.9 fL (36.4-46.3); Red Blood Count 3.93 M/uL (4.20-5.40); White Blood Count 10.72 K/ul (4.8-10.8)
[2023-02-17] MEDS: FERROUS SULFATE 325 MG TAB PO SCH (08:27)
[2023-02-17] MEDS: IBUPROFEN 600 MG TAB PO PRN ×3 (08:27→17:57)
[2023-02-17] MEDS: PRENATAL VITAMIN 1 TAB PO SCH (08:27)
[2023-02-17] MEDS: TOPIRAMATE 100 MG TAB PO SCH (08:27)
[2023-02-17] MEDS: DOCUSATE SODIUM 100 MG CAP PO SCH ×2 (08:27→20:55)
--- NOTE | 2023-02-17 09:29 | Obstetrical Progress Note ---
Date of Service February 17, 2023 Subjective Ambulation: ambulating normally Voiding: no voiding problems Passing Gas:: Yes Diet Tolerance:: regular diet Lochia:: Small Feeding Type:: breast feeding Current Pain Level(1-10): 0 Physical Exam Constitutional WD/WN, vitals as above Gastrointestinal (Abdomen) Inspection/Auscultation: abdomen normal to inspection Musculoskeletal Extremities: extremities normal to inspection Skin no rashes, warm and dry Neurologic patellar DTR's 2+ bilat, sensation intact Psychiatric A+Ox3, euthymic affect Results & Data Vital Signs (Past 12 Hours) Vital Signs Temp Pulse Pulse Resp BP BP Pulse Ox 02/17/23 03:10 36.6 C 59 L 18 127/84 100 02/16/23 23:10 36.4 C L 66 16 123/81 97 02/16/23 21:56 85 02/16/23 21:56 131/77 O2 Del Method 02/17/23 03:10 Room Air 02/16/23 23:10 Room Air 02/16/23 21:56 02/16/23 21:56 Laboratory Results Laboratory Results - last 72 hr 02/16/23 02/16/23 02/17/23 14:41 19:07 05:41 WBC 7.35 10.72 RBC 4.31 3.93 L Hgb 11.9 L 10.7 L Hct 35.0 L 32.7 L MCV 81.2 83.2 MCH 27.6 27.2 MCHC 34.0 32.7 RDW Std Deviation 38.4 38.9 RDW Coeff of [place] 13.0 12.8 Plt Count 179 145 MPV 11.1 11.3 POC Glucose 76
[2023-02-17] MEDS ORDERED: bisacodyL 5 MG TABEC PO SCH (20:00)
[2023-02-17] MEDS: TOPIRAMATE 50 MG TAB PO SCH (20:56)
[2023-02-17] MEDS ORDERED: TOPIRAMATE 50 MG TAB PO SCH (21:00)
[2023-02-18] MEDS: IBUPROFEN 600 MG TAB PO PRN ×2 (00:01→10:08)
[2023-02-18 07:09] LABS: Hematocrit (blood only) 33.1 % (37.0-47.0)
[2023-02-18] MEDS: TOPIRAMATE 100 MG TAB PO SCH (08:54)
[2023-02-18] MEDS: FERROUS SULFATE 325 MG TAB PO SCH (08:54)
[2023-02-18] MEDS: DOCUSATE SODIUM 100 MG CAP PO SCH (08:54)
[2023-02-18] MEDS: PRENATAL VITAMIN 1 TAB PO SCH (08:54)
[2023-02-18] MEDS: BENZOCAINE 20% SPRY 85 APPLN/85 GM CAN EXT PRN (09:13)
--- NOTE | 2023-02-18 09:20 | Obstetrical Progress Note ---
Date of Service February 18, 2023 Assessment & Plan Admission and Anticipated Discharge Date Admission Date: February 16, 2023 Subjective Patient is seen and examined. She feels well, no complaints. Ambulating without dizziness Voiding without difficulty Tolerating regular diet with out N&V Bleeding is minimal No fever/ chills/ CP/ SOB/ N&V/ Leg pain Breast feeding without problems Vital Signs Temp Pulse Resp BP Pulse Ox O2 Del Method 02/17/23 23:16 36.4 C L 66 20 115/77 98 Room Air Lab Results 02/16/23 02/16/23 02/17/23 Range/Units 14:41 19:07 05:41 WBC 7.35 10.72 (4.8-10.8) K/ul RBC 4.31 3.93 L (4.20-5.40) M/uL Hgb 11.9 L 10.7 L (12.0-16.0) g/dl Hct 35.0 L 32.7 L (37.0-47.0) % MCV 81.2 83.2 (80.0-100.0) fL MCH 27.6 27.2 (25.0-34.0) pg MCHC 34.0 32.7 (32.0-36.0) g/dL RDW Std Deviation 38.4 38.9 (36.4-46.3) fL RDW Coeff of [place] 13.0 12.8 (11.5-14.5) % Plt Count 179 145 (130-400) K/uL MPV 11.1 11.3 (9.4-12.4) fL POC Glucose 76 (70-99) mg/dl 02/18/23 Range/Units 06:44 WBC (4.8-10.8) K/ul RBC (4.20-5.40) M/uL Hgb 11.0 L (12.0-16.0) g/dl Hct 33.1 L (37.0-47.0) % MCV (80.0-100.0) fL MCH (25.0-34.0) pg MCHC (32.0-36.0) g/dL RDW Std Deviation (36.4-46.3) fL RDW Coeff of [place] (11.5-14.5) % Plt Count (130-400) K/uL MPV (9.4-12.4) fL POC Glucose (70-99) mg/dl PE: General: Alert, orientedx3, NAD Abd: soft, NT, fundus firm, below Umbilicus Perineum intact, Lochia rubra minimal Ext; NT, no edema AP: 32 yo s/p , ppd# 2 VSS Afebrile doing well Continue routine care All questions were answered D/C home , f/u in office Results & Data Vital Signs (Past 12 Hours) Vital Signs Temp Pulse Resp BP Pulse Ox O2 Del Method 02/17/23 23:16 36.4 C L 66 20 115/77 98 Room Air
== END 2023-02-18 16:45 | disposition home or self-care (01) | DRG 806 ==
LOC: OPB 13:38 → 4S1 13:39 → 4E2 22:36